=== PATIENT | male | born 1975 | race Caucasian/White ===

== ENCOUNTER 2024-01-23 06:38 | Day surgery (SDC) | payer OTHER ==
[~2024-01-23] VITALS: Ht 165.1 cm; Wt 79.8 kg
[2024-01-23] MEDS ORDERED: fentaNYL citrate 0.05 MG/ML VIAL ONE (07:30)
[2024-01-23] MEDS: fentaNYL citrate 0.05 MG/ML VIAL IVP ONE (07:56)
[2024-01-23] MEDS: LIDOCAINE 2% 100 MG/5 ML UJET TP ONE (08:07)
== END 2024-01-23 09:10 | disposition home or self-care (01) ==
LOC: MDS 06:38 → MMU 06:39 → MDS 09:10
PROVIDERS: ATTEND Internal Medicine Gastroenterology
DX: K57.32 Diverticulitis of large intestine without perforation or abscess without bleeding (principal); K64.8 Other hemorrhoids; Z90.49 Acquired absence of other specified parts of digestive tract; Z98.890 Other specified postprocedural states
CPT/HCPCS: 45378; J3010